=== PATIENT | male | born 1955 | race Caucasian/White ===

== ENCOUNTER 2022-07-06 13:52 | Outpatient (REF) | payer BC, SELFPAY ==
[2022-07-06 15:29] LABS: ALT 22 U/L (16-63); AST 26 U/L (15-37); Albumin 4.1 g/dL (3.4-5.0); Alkaline Phosphatase 102 U/L (46-116); Anion Gap 8.4 mmol/L (3-11); BUN 14 mg/dL (7-18); Bilirubin, Total 0.3 mg/dL (0.2-1.0); CO2 27.6 mmol/L (21.0-32.0); CREATININE 1.2 mg/dL (0.70-1.30); Calcium 9.9 mg/dL (8.5-10.1); Calculated LDL 103 mg/dL (<100); Chloride 104 mmol/L (98-107); Cholesterol 162 mg/dL (<200); Estimated GFR 67.11 (mL/min/1.73m2); Glucose 149 mg/dL (74-106); HDL Cholesterol 51 mg/dL (40-60); Potassium 4.2 mmol/L (3.5-5.1); Sodium 140 mmol/L (136-145); Total Protein 7.8 g/dL (6.4-8.2); Triglyceride 41 mg/dL (<150)
[2022-07-06 15:36] LABS: COMMENT (LAB VIEW ONLY) 146.69 mg/dL; Microalb ug/mg Crea 24.1 ug/mg Cr
== END 2022-07-06 13:53 | disposition home or self-care (01) ==
LOC: NCHCN 13:52
PROVIDERS: Visit Provider Nurse Practitioner Family
DX: I10 Essential (primary) hypertension (principal); E78.00 Pure hypercholesterolemia, unspecified; E11.59 Type 2 diabetes mellitus with other circulatory complications
CPT/HCPCS: 80053; 80061; 82043; 82570

== ENCOUNTER 2022-11-30 15:42 | Outpatient (REF) | payer BC, SELFPAY ==
[2022-11-30 21:20] LABS: BUN 28 mg/dL (7-18); CREATININE 1.3 mg/dL (0.70-1.30); Calcium 9.6 mg/dL (8.5-10.1); Chloride 105 mmol/L (98-107); Estimated GFR 60.96 (mL/min/1.73m2); Glucose 125 mg/dL (74-106); Potassium 4.8 mmol/L (3.5-5.1); Sodium 141 mmol/L (136-145)
[2022-11-30 21:22] LABS: Hemoglobin A1C 6.5 % (<5.7)
== END 2022-11-30 15:43 | disposition home or self-care (01) ==
LOC: NCHCN 15:42
PROVIDERS: Visit Provider Family Medicine
DX: I10 Essential (primary) hypertension (principal); E11.9 Type 2 diabetes mellitus without complications
CPT/HCPCS: 80048; 83036

== ENCOUNTER 2023-06-18 17:53 | Outpatient (REF) | payer MEDICARE, OTHER, SELFPAY ==
[2023-06-18 18:12] LABS: Abs Immature Grans 0.13 10^3/uL (0.0-0.06); Absolute Basophil Count 0.07 10^3/uL (0.0-0.2); Absolute Eosinophil Count 0.38 10^3/uL (0.0-0.7); Absolute Monocyte Count 1.12 10^3/uL (0.1-0.8); Basophils % 0.6; Eosinophils % 3.3; HCT 44.3 % (40.0-50.0); HGB 14.9 g/dL (13.5-17.5); Immature Grans % 1.1; Lymphocytes % 24.5; MCH 31.6 pg (27.0-33.0); MCHC 33.6 % (32.0-36.0); MCV 94 fL (80-95); MPV 10.8 fL (8.0-11.0); Monocytes % 9.8; Neutrophils % 60.7; Platelet Count 293 10^3/uL (130-400); RBC 4.72 10^6/uL (4.36-5.78); RDW 12.7 % (11.8-14.1); RDW-SD 43.8 fL; WBC 11.42 10^3/uL (4.4-10.8)
[2023-06-18 18:13] LABS: Absolute Neutrophil Count 6.93 10^3/uL (1.2-6.7)
[2023-06-18 18:29] LABS: BUN 26 mg/dL (7-18); CREATININE 1.2 mg/dL (0.70-1.30)
== END 2023-06-18 17:54 | disposition home or self-care (01) ==
LOC: LBN 17:53
PROVIDERS: Visit Provider Family Medicine
DX: T82.7XXA Infection and inflammatory reaction due to other cardiac and vascular devices, implants and grafts, initial encounter (principal); B96.89 Other specified bacterial agents as the cause of diseases classified elsewhere; Z79.2 Long term (current) use of antibiotics; I44.0 Atrioventricular block, first degree
CPT/HCPCS: 84520; 82565; 85025

== ENCOUNTER 2023-06-25 18:43 | Outpatient (REF) | payer MEDICARE, OTHER, SELFPAY ==
[2023-06-25 15:50] LABS: Abs Immature Grans 0.11 10^3/uL (0.0-0.06); Absolute Basophil Count 0.08 10^3/uL (0.0-0.2); Absolute Eosinophil Count 0.43 10^3/uL (0.0-0.7); Absolute Lymphocyte Count 2.95 10^3/uL (1.2-3.4); Absolute Monocyte Count 1.14 10^3/uL (0.1-0.8); Basophils % 0.7; Eosinophils % 3.6; HCT 43.4 % (40.0-50.0); HGB 14.7 g/dL (13.5-17.5); Immature Grans % 0.9; Lymphocytes % 24.9; MCH 31.2 pg (27.0-33.0); MCHC 33.9 % (32.0-36.0); MCV 92 fL (80-95); MPV 10.5 fL (8.0-11.0); Monocytes % 9.6; Neutrophils % 60.3; Platelet Count 225 10^3/uL (130-400); RBC 4.71 10^6/uL (4.36-5.78); RDW 12.7 % (11.8-14.1); RDW-SD 42.9 fL; WBC 11.85 10^3/uL (4.4-10.8)
[2023-06-25 15:57] LABS: Absolute Neutrophil Count 7.15 10^3/uL (1.2-6.7)
[2023-06-25 16:00] LABS: ALT 31 U/L (16-63); AST 32 U/L (15-37); BUN 28 mg/dL (7-18); CREATININE 1.3 mg/dL (0.70-1.30); Estimated GFR 60.59 (mL/min/1.73m2)
== END 2023-06-25 18:44 | disposition home or self-care (01) ==
LOC: LBN 18:43
PROVIDERS: Visit Provider Internal Medicine
DX: I44.30 Unspecified atrioventricular block (principal); B96.89 Other specified bacterial agents as the cause of diseases classified elsewhere; T82.7XXD Infection and inflammatory reaction due to other cardiac and vascular devices, implants and grafts, subsequent encounter; Z45.2 Encounter for adjustment and management of vascular access device
CPT/HCPCS: 84520; 82565; 84450; 84460; 85025

== ENCOUNTER 2023-06-29 15:44 | Outpatient (REF) | payer MEDICARE, OTHER, SELFPAY ==
[2023-06-29 15:01] LABS: COMMENT (LAB VIEW ONLY) 76.87 mg/dL; Microalb ug/mg Crea 37.3 ug/mg Cr
== END 2023-06-29 15:45 | disposition home or self-care (01) ==
LOC: NCHCN 15:44
PROVIDERS: PCP Family Medicine; Visit Provider Family Medicine
DX: E11.9 Type 2 diabetes mellitus without complications (principal)
CPT/HCPCS: 82043; 82570

== ENCOUNTER 2023-07-02 14:54 | Outpatient (REF) | payer MEDICARE, OTHER, SELFPAY ==
[2023-07-02 15:57] LABS: Abs Immature Grans 0.04 10^3/uL (0.0-0.06); Absolute Basophil Count 0.07 10^3/uL (0.0-0.2); Absolute Eosinophil Count 0.27 10^3/uL (0.0-0.7); Absolute Lymphocyte Count 2.68 10^3/uL (1.2-3.4); Absolute Monocyte Count 0.92 10^3/uL (0.1-0.8); Absolute Neutrophil Count 5.08 10^3/uL (1.2-6.7); Basophils % 0.8; HCT 43.6 % (40.0-50.0); HGB 14.4 g/dL (13.5-17.5); Immature Grans % 0.4; Lymphocytes % 29.6; MCH 30.7 pg (27.0-33.0); MCV 93 fL (80-95); MPV 10.8 fL (8.0-11.0); Monocytes % 10.2; Platelet Count 286 10^3/uL (130-400); RBC 4.69 10^6/uL (4.36-5.78); RDW 13.1 % (11.8-14.1); RDW-SD 43.8 fL; WBC 9.06 10^3/uL (4.4-10.8)
[2023-07-02 16:20] LABS: ALT 30 U/L (16-63); AST 22 U/L (15-37); BUN 22 mg/dL (7-18); CREATININE 1.3 mg/dL (0.70-1.30); Estimated GFR 60.59 (mL/min/1.73m2)
== END 2023-07-02 14:55 | disposition home or self-care (01) ==
LOC: LBN 14:54
PROVIDERS: PCP Family Medicine; Visit Provider Internal Medicine
DX: I44.30 Unspecified atrioventricular block (principal); T82.7XXA Infection and inflammatory reaction due to other cardiac and vascular devices, implants and grafts, initial encounter; B96.89 Other specified bacterial agents as the cause of diseases classified elsewhere
CPT/HCPCS: 84520; 82565; 84450; 84460; 85025

== ENCOUNTER 2023-07-09 14:09 | Outpatient (REF) | payer MEDICARE, OTHER, SELFPAY ==
[2023-07-09 15:38] LABS: Abs Immature Grans 0.07 10^3/uL (0.0-0.06); Absolute Basophil Count 0.06 10^3/uL (0.0-0.2); Absolute Eosinophil Count 0.35 10^3/uL (0.0-0.7); Absolute Lymphocyte Count 2.51 10^3/uL (1.2-3.4); Absolute Monocyte Count 0.92 10^3/uL (0.1-0.8); Absolute Neutrophil Count 4.03 10^3/uL (1.2-6.7); Basophils % 0.8; Eosinophils % 4.4; HCT 42.4 % (40.0-50.0); Immature Grans % 0.9; Lymphocytes % 31.6; MCH 30.8 pg (27.0-33.0); MCV 93 fL (80-95); MPV 10.7 fL (8.0-11.0); Monocytes % 11.6; Neutrophils % 50.7; Platelet Count 272 10^3/uL (130-400); RBC 4.54 10^6/uL (4.36-5.78); RDW 13.2 % (11.8-14.1); RDW-SD 44.9 fL; WBC 7.94 10^3/uL (4.4-10.8)
[2023-07-09 16:04] LABS: ALT 24 U/L (16-63); AST 18 U/L (15-37); BUN 22 mg/dL (7-18); CREATININE 1.2 mg/dL (0.70-1.30)
== END 2023-07-09 14:10 | disposition home or self-care (01) ==
LOC: LBN 14:09
PROVIDERS: PCP Family Medicine; Visit Provider Internal Medicine
DX: I10 Essential (primary) hypertension (principal); E11.9 Type 2 diabetes mellitus without complications; I44.30 Unspecified atrioventricular block; T82.7XXA Infection and inflammatory reaction due to other cardiac and vascular devices, implants and grafts, initial encounter; B96.89 Other specified bacterial agents as the cause of diseases classified elsewhere; Z79.2 Long term (current) use of antibiotics
CPT/HCPCS: 84520; 82565; 84450; 84460; 85025

== ENCOUNTER 2023-07-16 20:06 | Outpatient (REF) | payer MEDICARE, OTHER, SELFPAY ==
[2023-07-16 14:59] LABS: Abs Immature Grans 0.06 10^3/uL (0.0-0.06); Absolute Basophil Count 0.06 10^3/uL (0.0-0.2); Absolute Eosinophil Count 0.24 10^3/uL (0.0-0.7); Absolute Lymphocyte Count 2.45 10^3/uL (1.2-3.4); Absolute Monocyte Count 0.86 10^3/uL (0.1-0.8); Absolute Neutrophil Count 4.56 10^3/uL (1.2-6.7); Basophils % 0.7; Eosinophils % 2.9; HCT 43.1 % (40.0-50.0); HGB 14.3 g/dL (13.5-17.5); Immature Grans % 0.7; Lymphocytes % 29.8; MCH 31.2 pg (27.0-33.0); MCHC 33.2 % (32.0-36.0); MCV 94 fL (80-95); MPV 10.6 fL (8.0-11.0); Monocytes % 10.4; Neutrophils % 55.5; Platelet Count 208 10^3/uL (130-400); RBC 4.58 10^6/uL (4.36-5.78); RDW 13.1 % (11.8-14.1); RDW-SD 44.7 fL; WBC 8.23 10^3/uL (4.4-10.8)
[2023-07-16 15:29] LABS: ALT 33 U/L (16-63); AST 26 U/L (15-37); BUN 26 mg/dL (7-18); CREATININE 1.3 mg/dL (0.70-1.30); Estimated GFR 60.59 (mL/min/1.73m2)
== END 2023-07-16 20:07 | disposition home or self-care (01) ==
LOC: LBN 20:06
PROVIDERS: PCP Family Medicine; Visit Provider Internal Medicine
DX: T82.7XXA Infection and inflammatory reaction due to other cardiac and vascular devices, implants and grafts, initial encounter (principal); B96.89 Other specified bacterial agents as the cause of diseases classified elsewhere; Z79.2 Long term (current) use of antibiotics; I44.30 Unspecified atrioventricular block; I10 Essential (primary) hypertension
CPT/HCPCS: 84520; 82565; 84450; 84460; 85025

== ENCOUNTER 2024-08-27 20:11 | Outpatient (REF) | payer MEDICARE, OTHER, SELFPAY ==
[2024-08-27 16:59] LABS: COMMENT (LAB VIEW ONLY) 81.88 mg/dL; Microalb ug/mg Crea 25.5 ug/mg Cr
== END 2024-08-27 20:12 | disposition home or self-care (01) ==
LOC: NCHCN 20:11
PROVIDERS: PCP Family Medicine; Visit Provider Family Medicine
DX: E11.9 Type 2 diabetes mellitus without complications (principal)
CPT/HCPCS: 82043; 82570

== ENCOUNTER 2024-10-23 15:19 | Outpatient (REF) | payer MEDICARE, OTHER, SELFPAY ==
[2024-10-23 21:18] LABS: Abs Immature Grans 0.03 10^3/uL (0.0-0.06); Absolute Basophil Count 0.09 10^3/uL (0.0-0.2); Absolute Eosinophil Count 0.08 10^3/uL (0.0-0.7); Absolute Lymphocyte Count 0.97 10^3/uL (1.2-3.4); Absolute Monocyte Count 0.94 10^3/uL (0.1-0.8); Absolute Neutrophil Count 4.54 10^3/uL (1.2-6.7); Basophils % 1.4 %; Eosinophils % 1.2 %; HCT 51.4 % (40.0-50.0); HGB 17.1 g/dL (13.5-17.5); Immature Grans % 0.5 %; Lymphocytes % 14.6 %; MCH 29.8 pg (27.0-33.0); MCHC 33.3 % (32.0-36.0); MCV 90 fL (80-95); MPV 10.5 fL (8.0-11.0); Monocytes % 14.1 %; Neutrophils % 68.2 %; Platelet Count 263 10^3/uL (130-400); RBC 5.73 10^6/uL (4.36-5.78); RDW 14.5 % (11.8-14.1); RDW-SD 48.1 fL; WBC 6.65 10^3/uL (4.4-10.8)
[2024-10-23 21:39] LABS: ALT 19 U/L (16-63); AST 24 U/L (15-37); Albumin 3.7 g/dL (3.4-5.0); Alkaline Phosphatase 103 U/L (46-116); Anion Gap 11.7 mmol/L (3-11); BUN 23 mg/dL (7-18); Bilirubin, Total 0.8 mg/dL (0.2-1.0); CO2 24.3 mmol/L (21.0-32.0); CREATININE 1.3 mg/dL (0.70-1.30); Calcium 9.7 mg/dL (8.5-10.1); Chloride 102 mmol/L (98-107); Estimated GFR 60.21 (mL/min/1.73m2); Glucose 118 mg/dL (74-106); Lipase 55 U/L (<78); Potassium 4.3 mmol/L (3.5-5.1); Sodium 138 mmol/L (136-145); TSH 1.69 uIU/mL (0.36-3.74); Total Protein 7.8 g/dL (6.4-8.2)
== END 2024-10-23 15:20 | disposition home or self-care (01) ==
LOC: NCHCN 15:19
PROVIDERS: PCP Family Medicine; Visit Provider Family Medicine
DX: R63.4 Abnormal weight loss (principal); R10.9 Unspecified abdominal pain
CPT/HCPCS: 80053; 83690; 84439; 84443; 85025